=== PATIENT | female | born 1965 | race Caucasian/White ===

== ENCOUNTER 2022-12-20 13:30 | Outpatient (CLI) | payer BC, MEDICAID, SELFPAY ==
--- NOTE | 2022-12-20 13:39 | MM_ITS ---
WS: [id number] BILATERAL 3D TOMOSYNTHESIS DIGITAL SCREENING MAMMOGRAPHY WITH CAD CLINICAL INFORMATION: SCREENING HISTORY: Screening mammogram. No current complaints. COMPARISON: None. TECHNIQUE: Bilateral CC and MLO views. FINDINGS: The breasts are composed of heterogeneous fibroglandular density tissue, which can limit the detectio n of small underlying mass lesions. A few incidental punctate calcifications. 7 mm ovoid nodule upper outer LEFT breast represent a lymph node but no prior comparisons. Recommend further evaluation with ultrasound. Unremarkable RIGHT breast. MM/[place] [id number] IMPRESSION: BI-RADS: 0-Incomplete: Need additional imaging evaluation FOLLOW UP: Need Additional Imaging 7 mm ovoid nodule upper outer LEFT breast may represent a lymph node but no rosetta or comparisons. Recommend further evaluation with ultrasound.
== END 2022-12-20 13:31 | disposition home or self-care (01) ==
PROVIDERS: PCP Family Medicine; Visit Provider Family Medicine
DX: Z12.31 Encounter for screening mammogram for malignant neoplasm of breast (principal); N63.21 Unspecified lump in the left breast, upper outer quadrant
CPT/HCPCS: 77063; 77067

== ENCOUNTER 2023-01-03 13:34 | Outpatient (CLI) | payer BC, MEDICAID, SELFPAY ==
--- NOTE | 2023-01-03 13:49 | CT_ITS ---
WS: [id number] LDCT LUNG CANCER SCREENING TECHNIQUE: Noncontrast CT of the chest with coronal and sagittal reformatted images. CLINICAL INFORMATION: NICOTINE DEPENDENCE, CIGARETTES, UNCOMPLICATED COMPARISON: None. DLP: 35.41 mGy.cm DIvol: Mean CTDIvol: 0.40 (mGy) All CT scans at [facility] use at least one of these dose optimization techniques: automat ed exposure control; mA and/or kV adjustment per patient size (includes targeted exams where dose is matched to clinical indication); or iterative reconstruction. FINDINGS: Spiculated lesion in LEFT upper lobe at the lung apex abutting the pleura posterolaterally. Spiculate d lesion measures approximately 1.7 x 1.6 x 2.1 cm AP by transverse by craniocaudal. Chronic emphysem atous changes. No mediastinal or hilar lymphadenopathy. Aortic calcification. No axillary lymphadenop athy. Normal GE junction. Noncalcified nodule LEFT upper lobe medially measuring 4.5 mm. Slight hazy atelectasis in the LEFT lo wer lobe. Tiny noncalcified nodule LEFT lower lobe. Tiny noncalcified nodule RIGHT upper lobe. Pleura l nodule RIGHT lower lobe measuring 4.[address]/CT lung screening [id number] IMPRESSION: Suspicious spiculated opacity in the LEFT upper lobe abutting the p leura measuring up to 2.1 cm. Recommend further evaluation with PET/CT. Neoplas m not excluded. LUNG-RADS: 4X-Suspicious FOLLOW UP: PET/CT recommended
== END 2023-01-03 13:35 | disposition home or self-care (01) ==
LOC: RAD 13:35
PROVIDERS: PCP Family Medicine; Visit Provider Family Medicine
DX: Z12.2 Encounter for screening for malignant neoplasm of respiratory organs (principal); F17.210 Nicotine dependence, cigarettes, uncomplicated
CPT/HCPCS: 71271

== ENCOUNTER 2023-01-26 12:10 | Outpatient (CLI) | payer BC, MEDICAID, SELFPAY ==
--- NOTE | 2023-01-26 12:23 | US_ITS ---
WS: [id number] ULTRASOUND BREAST LEFT TECHNIQUE: Ultrasound LEFT breast focused area of concern. CLINICAL INFORMATION: LEFT LUMP COMPARISON: December 20, 2022 FINDINGS: Ultrasound LEFT breast 12 to 3:00 position. Small subcutaneous ovoid hypoechoic lesion measuring 3.7 2.0 x 4.5 mm with a small amount of through transmission. This may represent a small complex cyst wit h internal debris but technically indeterminant. Considering no comparisons, recommend further evalua tion with ultrasound-guided biopsy/aspiration. US/US breast LT limited* [id number] IMPRESSION: BI-RADS 4 SUSPICIOUS FOLLOW UP: RECOMMEND ULTRASOUND-GUIDED BIOPSY/ASPIRATION.
== END 2023-01-26 12:11 | disposition home or self-care (01) ==
LOC: RAD 12:12
PROVIDERS: PCP Family Medicine; Visit Provider Family Medicine
DX: N63.21 Unspecified lump in the left breast, upper outer quadrant (principal)
CPT/HCPCS: 76642

== ENCOUNTER 2023-01-28 06:31 | Outpatient (CLI) | payer BC, MEDICAID, SELFPAY ==
--- NOTE | 2023-01-28 | PETR_ITS ---
PROCEDURE INFORMATION: Exam: PET/CT Skull Base to Mid-thigh Exam date and time: 01/28/2023 8:37 AM Age: 57 years old Clinical indication: Abnormal findings on CT scan LABS AND CLINICAL REPORTS: Glucose: 111 mg/dl Treatment strategy for malignancy (PET staging): Initial Staging (PI) TECHNIQUE: Imaging protocol: Following at least four-hour fasting and following the injection of radiopharmaceutical, low dose CT images were obtained. Then, PET images were obtained. Attenuation corrected images were constructed using the CT scan. Fused images of PET and CT were reviewed. The standardized uptake values (SUV) reported below are maximum values within a region of interest, expressed in gm/ml. Exam includes orbital meatal line to mid-thigh. Radiopharmaceutical: 12.66 mCi F-18 FDG (Fluorodeoxyglucose), IV. Time of imaging post radiopharmaceutical administration: 1 hour Injection site: Not specified COMPARISON: CT lung screening 01/03/2023 2:01 PM FINDINGS: Brain: Visualized brain has normal physiologic uptake. Pharynx: No abnormal uptake. Larynx: No abnormal uptake. Lungs, pleura and trachea: A similar solid spiculated pleural based posterior left upper lobe nodule on series 3, image 32 measures 1.6 x 1.4 cm, SUV max 1.4. There is a right lower lobe calcified granuloma. A solid noncalcified pleural based posterior right lower lobe nodule measuring 4 mm on series 3, image 52 is unchanged. A previously noted medial left upper lobe solid noncalcified nodule measuring approximately 4 mm is faintly visible on series 3, image 34 without elevated uptake. Mild bilateral centrilobular emphysematous changes. Mild bullous changes at the lung apices. Heart: Normal physiologic uptake. Mediastinal space: No abnormal uptake. Liver: No abnormal uptake. Gallbladder and bile ducts: No abnormal uptake. Pancreas: No abnormal uptake. Spleen: No abnormal uptake. Adrenal glands: No abnormal uptake. Kidneys and ureters: Normal physiologic uptake. Stomach and bowel: No abnormal uptake. Vasculature: No abnormal uptake. There are diffuse atherosclerotic changes including within the coronary arteries. Lymph nodes: No abnormal uptake. No lymphadenopathy in the head, neck, chest, abdomen, pelvis, and extremities. Bones/joints: No abnormal uptake in the visualized axial and appendicular skeleton. There is mild diffuse vertebral body spondylosis. Soft tissues: No abnormal uptake in the visualized head, neck, chest, abdomen, pelvis, and extremities. METRICS: Mediastinal blood pool: SUV max 1.6 PET/PET skulltothigh INITIAL [id number] IMPRESSION: 1. No evidence of radiotracer avid malignancy. 2. Similar size of a pleural based spiculated nodular density in the left upper lobe without significant uptake. This lack of uptake favors a benign etiology such as scarring. Non hypermetabolic malignancy is a less likely consideration. Consider 3 month follow-up chest CT for further surveillance. 3. Additional small similar bilateral pulmonary nodules are not radiotracer avid. Assessment of small nodules can be limited by PET-CT. 4. Centrilobular emphysematous changes. 5. Additional nonurgent findings as detailed above.
== END 2023-01-28 06:32 | disposition home or self-care (01) ==
LOC: RAD 01-30 06:31
PROVIDERS: PCP Family Medicine; Visit Provider Family Medicine
DX: R91.8 Other nonspecific abnormal finding of lung field (principal); R93.89 Abnormal findings on diagnostic imaging of other specified body structures
CPT/HCPCS: 78815; A9552

== ENCOUNTER 2023-02-15 13:03 | Outpatient (CLI) | payer BC, MEDICAID, SELFPAY ==
--- NOTE | 2023-02-15 13:17 | US_ITS ---
WS: [id number] ULTRASOUND-GUIDED LEFT BREAST BIOPSY HISTORY: L BREAST LUMP COMPARISON: 01/26/2023 and 01/03/2023 Procedure, risks and complications are explained to the patient. Medications are reviewed. Consent is obtained. The mass in the left breast is localized with ultrasound. Mass localizes to 1:00, 3 cm from the nippl e. Skin is cleansed with ChloraPrep and anesthetized with 1% buffered lidocaine. Small dermatome is m giovanny. Under sterile conditions mass is biopsied with a 14-gauge Achieve needle. Multiple core biopsies are performed. Material placed in formalin and sent to pathology for review. No complications encoun tered. Breast tissue marker (Bard ultrasound enhanced ribbon): None. Patient declined. Patient left the radiology suite with no complications. Patient is instructed to return to [facility] or [facility] with any concerns. IMPRESSION: 1. Uncomplicated core needle biopsy left breast mass at 1:00. US/[place] [id number] PATHOLOGY: Benign appearing lymph node tissue and adipose tissue. No malignancy . RECOMMENDATION: 6-month left breast ultrasound follow-up. Pathology and imaging findings are concordant.
== END 2023-02-15 13:04 | disposition home or self-care (01) ==
PROVIDERS: PCP Family Medicine; Visit Provider Family Medicine
DX: N63.21 Unspecified lump in the left breast, upper outer quadrant (principal)
CPT/HCPCS: 19083; 88305